=== PATIENT | male | born 1960 | race Caucasian/White ===

== ENCOUNTER 2020-12-24 16:26 | Emergency (ER) | payer SELFPAY ==
[~2020-12-24] VITALS: Ht 177.8 cm; Wt 105.7 kg
[2020-12-24] MEDS ORDERED: LORAZEPAM 1 MG TABLET ONE (17:16)
--- NOTE | 2020-12-24 17:20 | NUR ---
ANXIETY WORST S/P HEARING OF 'S PASSING. REQUESTING MEDICATION TO HELP HIM SLEEP AT NIGHT. DENIES SI/HI . PT AAOX4, VSS. RR EVEN & UNLABORED. DENIES CP, SOB, DIZZINESS, N/V AT THIS TIME. MEDICATED ORDERED, PT STEPHANIE WELL. WILL CONT TO MONITOR.
[2020-12-24] MEDS ORDERED: LORAZEPAM 1 MG TABLET PO ONE (17:30)
--- NOTE | 2020-12-24 18:19 | NUR ---
FRIEND PENELOPE RODRIGUEZ, LEFT CONTACT # [phone]
[2020-12-24] MEDS ORDERED: LORA-259 PO (18:24)
[2020-12-24] MEDS ORDERED: PROP10TA10 PO (18:24)
--- NOTE | 2020-12-24 18:34 | NUR ---
Patient discharged to home in stable condition. Written and verbal after care instructions given. Patient verbalizes understanding of instruction.
[2020-12-24 18:35] VITALS: BP 124/76
== END 2020-12-24 18:35 | disposition home or self-care (01) ==
LOC: ER 16:30
DX: F43.0 Acute stress reaction (principal); F10.10 Alcohol abuse, uncomplicated; Y90.9 Presence of alcohol in blood, level not specified; Z79.899 Other long term (current) drug therapy

== ENCOUNTER 2021-01-11 10:19 | Emergency (ER) | payer SELFPAY ==
[~2021-01-11] VITALS: Ht 175.3 cm; Wt 77.6 kg
[~2021-01-11 10:19] MED LIST: LORA-259 PO
--- NOTE | 2021-01-11 10:30 | NUR ---
THE PATIENT BIBS FOR C/O ANXIETY AND PANIC ATTACK SINCE SATURDAY. STATES RAN OUT OF [employer]. ALERT AND ORIENTED X4. DENIES PAIN. IN ROOM AIR AND DENIES SOB. RESPIRATION REGULAR AND UNLABORED. WILL CONTINUE TO MONITOR THE PATIENT.
--- NOTE | 2021-01-11 10:30 | NUR ---
PT AMBULATORY TO ER BED 07 C/O ANXIETY AND PANIC ATTACK THAT STARTED ON THE WEEKENDS, PT WAS SEEN IN ED 3 WEEKS AGO FOR SAME REASON. PT STATES RAN OUT OF [employer] WHICH WORKS FOR HIM. STATES STARTED TAKING "MARIJUANA EDIBLES" WHICH MAKES HIS SYMPTOMS WORST. PT HAS NO OTHER COMPLAINS AT THIS TIME. STABLE VITALS. AWAITING MD RAMOS.
--- NOTE | 2021-01-11 10:35 | NUR ---
DR TRIPATHI AT BEDSIDE FOR EVAL.
[2021-01-11] MEDS ORDERED: LORA-259 PO (10:40)
[2021-01-11 10:50] VITALS: BP 133/75
--- NOTE | 2021-01-11 10:50 | NUR ---
Patient discharged to home in stable condition. Written and verbal after care instructions given. Patient verbalizes understanding of instruction. The patient left ER in stable condition.
== END 2021-01-11 10:51 | disposition home or self-care (01) ==
LOC: ER 10:28
DX: F43.0 Acute stress reaction (principal); Z79.899 Other long term (current) drug therapy
CPT/HCPCS: 99283; A6403

== ENCOUNTER 2024-06-11 04:00 | Inpatient (IN) | payer MEDICAID ==
[~2024-06-11] VITALS: Ht 179.1 cm; Wt 111.8 kg
[2024-06-11] MEDS ORDERED: ONDANSETRON HCL/PF 4 MG/2 ML VIAL ONE (05:27)
[2024-06-11] MEDS: IV NS 0.9% 1,000 ML BAG IV ONE (05:36)
[2024-06-11] MEDS: ONDANSETRON HCL/PF 4 MG/2 ML VIAL IVP ONE (05:36)
[2024-06-11 05:40] VITALS: O2SAT 99
[2024-06-11 05:51] LABS: BASOPHILS % (AUTO) 0.2 % (0.0-2.0); EOSINOPHILS # (AUTO) 0.1 K/uL (0.0-0.7); EOSINOPHILS % (AUTO) 0.4 % (0.0-6.0); HEMATOCRIT 48 % (39-51); HEMOGLOBIN 16.3 g/dL (13.5-17.5); LYMPHOCYTES # (AUTO) 0.6 K/uL (0.8-4.8); LYMPHOCYTES % (AUTO) 4.1 % (20.0-44.0); MEAN CORPUSCULAR HEMOGLOBIN 32 PG (26.0-33.0); MEAN CORPUSCULAR HGB CONC 34 g/dl (31.0-36.0); MEAN CORPUSCULAR VOLUME 92 fL (80-96); MONOCYTES # (AUTO) 1.2 K/uL (0.1-1.30); MONOCYTES % (AUTO) 8.9 % (2.0-12.0); NEUTROPHILS # (AUTO) 11.8 K/uL (1.8-8.9); NEUTROPHILS % (AUTO) 86.4 % (43.0-81.0); PLATELET COUNT (AUTO) 211 K/uL (150-450); RED BLOOD CELL COUNT(AUTO) 5.16 MIL/uL (4.5-6.0); RED CELL DISTRIBUTION WIDTH 13.2 % (11.5-15.0); WHITE BLOOD COUNT (AUTO) 13.7 K/uL (4.3-11.0)
[2024-06-11 05:59] LABS: CALCIUM, SERUM 8.3 mg/dL (8.5-10.1); CARBON DIOXIDE 19 mmol/L (21-32); CHLORIDE 100 mmol/L (98-107); CREATININE 1.3 mg/dL (0.6-1.3); GLUCOSE 147 mg/dL (74-106); POTASSIUM 3.6 mmol/L (3.5-5.1); SODIUM SERUM 133 mmol/L (136-145); UREA NITROGEN, BLOOD 20 mg/dL (7-18)
[2024-06-11 06:05] LABS: ALANINE AMINOTRANSFERASE 117 U/L (12-78); ALBUMIN 3.5 g/dL (3.4-5.0); ALKALINE PHOSPHATASE 114 U/L (46-116); ASPARTATE AMINOTRANSFERASE 78 U/L (15-37); BILIRUBIN,DIRECT 0.6 mg/dL (0.0-0.2); BILIRUBIN,TOTAL 1.9 mg/dL (0.2-1.0); LIPASE 17 U/L (16-77); TOTAL PROTEIN, SERUM 7.3 g/dL (6.4-8.2)
[2024-06-11 07:17] LABS: APPEARANCE,URINE CLEAR (CLEAR); BILIRUBIN,URINE NEGATIVE (NEGATIVE); BLOOD, URINE NEGATIVE Ery/uL (NEGATIVE); COLOR,URINE YELLOW (YELLOW); KETONES,URINE 2+ mg/dL (NEGATIVE); LEUKOCYTE ESTERASE ,URINE NEGATIVE (NEGATIVE); NITRITE, URINE NEGATIVE (NEGATIVE); PH,URINE 5.5 (5.0-8.0); PROTEIN,URINE TRACE mg/dl (NEGATIVE); UGLUCOSE NEGATIVE (NEGATIVE); UROBILINOGEN,URINE 0.2 EU/dL (0.2)
[2024-06-11 07:32] LABS: ADD URINE CULTURE NO; BACTERIA,URINE Rare /HPF (None Seen); SQUAMOUS EPITHELIAL CELL,UR Few /HPF (None Seen); WBC,URINE 0-2 /HPF (0-3)
[2024-06-11] MEDS ORDERED: ASCO100058 PO (08:34)
[2024-06-11] MEDS ORDERED: Z GUARD REMEDY 4 OZ OINT TP PRN (09:00)
[2024-06-11] MEDS ORDERED: MAG HYDROX/AL HYDROX/SIMETH 30 ML UDC PO PRN (09:00)
[2024-06-11] MEDS ORDERED: MAGNESIUM HYDROXIDE 30 ML UDC PO PRN (09:00)
[2024-06-11] MEDS ORDERED: ONDANSETRON HCL/PF 4 MG/2 ML VIAL IVP PRN (09:00)
[2024-06-11] MEDS ORDERED: ACETAMINOPHEN 325 MG TABLET PO PRN (09:00)
[2024-06-11 12:05] VITALS: BP 164/84; TEMP 98.6; O2SAT 96
[2024-06-11] MEDS: IV NS 0.9% 1,000 ML IV PRN (13:13)
[2024-06-11 15:56] VITALS: BP 108/90; TEMP 100.2; O2SAT 97
[2024-06-11] MEDS ORDERED: DIATR MEGLU/DIATRIZOATE SODIUM 120 ML BOTTLE (GASTROGRAPHIN) ONE ×2 (18:22→18:23)
[2024-06-11 20:49] VITALS: BP 173/83; TEMP 98.6; O2SAT 96
[2024-06-11 20:55] VITALS: BP 155/72
[2024-06-11] MEDS: MORPHINE SULFATE INJ 2 MG/ML DISP.SYRIN IV PRN (23:49)
[2024-06-12] MEDS: ONDANSETRON HCL/PF 4 MG/2 ML VIAL IV PRN (00:39)
[2024-06-12 07:30] VITALS: BP 165/84; TEMP 98.8; O2SAT 97
[2024-06-12 16:00] VITALS: BP 151/77; TEMP 99.1; O2SAT 95
[2024-06-12 20:00] VITALS: BP 156/74; TEMP 99.2; O2SAT 97
[2024-06-13 08:00] VITALS: BP 157/84; TEMP 98.8; O2SAT 95
== END 2024-06-13 19:37 | disposition home or self-care (01) | DRG 247 ==
LOC: ER 04:01 → MED 09:53
PROVIDERS: ADMIT Internal Medicine; ATTEND Internal Medicine
DX: K56.7 Ileus, unspecified (principal); E66.9 Obesity, unspecified; K80.20 Calculus of gallbladder without cholecystitis without obstruction; F41.9 Anxiety disorder, unspecified; R79.89 Other specified abnormal findings of blood chemistry; Z68.34 Body mass index [BMI] 34.0-34.9, adult
CPT/HCPCS: 36415; 74250-TC; 76700-TC; 80048-TC; 80076-TC; 81001; 83690-TC; 84484-TC; 85025-TC; A4223; G0378; G0480; J2270; J2405; J7030; Q9963